=== PATIENT | female | born 1950 | race Two or more races ===

== ENCOUNTER 2022-12-02 08:31 | Day surgery (SDC) | payer OTHER, BC ==
[~2022-12-02] VITALS: Ht 168.9 cm; Wt 63.5 kg
[~2022-12-02 08:31] MED LIST: GLIMEPIRIDE4 M1 PO; NORVASC5 MG PO
[2022-12-02] MEDS ORDERED: IBU600 MG PO (14:38)
== END 2022-12-02 19:50 | disposition home or self-care (01) ==
LOC: CIR.AMB 08:31
PROVIDERS: ATTEND Obstetrics & Gynecology Gynecology
DX: N84.0 Polyp of corpus uteri (principal); Z20.822 Contact with and (suspected) exposure to COVID-19; I10 Essential (primary) hypertension; E11.9 Type 2 diabetes mellitus without complications; Z79.84 Long term (current) use of oral hypoglycemic drugs; I74.8 Embolism and thrombosis of other arteries